=== PATIENT | female | born 1970 | race Two or more races ===

== ENCOUNTER 2023-12-16 09:00 | Inpatient (IN) | payer OTHER ==
[~2023-12-16] VITALS: Ht 160 cm; Wt 64.4 kg
[2023-12-16 10:12] LABS: HEMATOCRIT 44.6 % (36.0-45.00); HEMOGLOBIN 15.3 g/dL (12.0-15.00); MEAN CELL VOLUME 92.3 fL (80.00-100.00); MEAN CORPUSCULAR HEMOGLOBIN 31.7 pg (27.00-32.0); MEAN CORPUSCULAR HGB CONC 34.4 g/dl (32.0-36.0); PLATELET COUNT 164 K/uL (150-450); RED BLOOD COUNT 4.83 M/uL (4.00-6.00); RED CELL DISTRIBUTION WIDTH 13.2 % (11.5-14.5)
[2023-12-16] MEDS ORDERED: SYNTHROID75 MCG PO ×2 (10:12→10:13)
[2023-12-16 10:14] VITALS: BP 117/52
[2023-12-16 10:21] VITALS: BP 114/73
[2023-12-16 10:31] LABS: INR 1.02; PARTIAL THROMBOPLASTIN TIME 24.7 SECONDS (22.0-34.0); PROTHROMBIN TIME 11.1 SECONDS (9.0-11.5)
[2023-12-16 11:30] LABS: ALBUMIN 4.1 gm/dL (3.4-5.0); BILIRUBIN TOTAL 0.61 mg/dL (0.3-1.2); CALCIUM 10.8 mg/dL (8.5-10.1); CREATININE SERUM 0.58 mg/dL (0.55-1.02); GFR 108.33; GLOBULINA 2.9 G/DL (2.4-3.5); POTASSIUM 4.52 mEq/L (3.5-5.1)
[2023-12-16 12:46] LABS: RH POSITIVE
[2023-12-27] MEDS ORDERED: RINGERS SOLUTION,LACTATED 1,000 ML IV SCH (11:00)
[2023-12-27] MEDS ORDERED: MORPHINE SULFATE 4 MG/ML CARTRIDGE IV PRN (11:00)
[2023-12-27] MEDS ORDERED: CEFAZOLIN SODIUM 1,000 MG VIAL IV ONE (11:15)
[2023-12-27] MEDS ORDERED: IBUprofen 800 MG TABLET PO PRN (11:15)
[2023-12-27] MEDS ORDERED: KETOROLAC TROMETHAMINE 30 MG VIAL IV PRN (11:15)
[2023-12-27] MEDS ORDERED: ACETAMINOPHEN 325 MG TABLET PO PRN (11:15)
[2023-12-27] MEDS ORDERED: SUGAMMADEX SODIUM 200 MG/2 ML VIAL IV ONE (11:30)
[2023-12-27] MEDS ORDERED: MORPHINE SULFATE 4 MG/ML VIAL IV ONE ×2 (11:50→12:20)
[2023-12-27 13:47] VITALS: BP 117/52
[2023-12-27 16:00] VITALS: BP 125/68
[2023-12-27] MEDS ORDERED: ONDANSETRON HCL 2 MG/ML VIAL IV SCH (21:00)
[2023-12-28 01:08] VITALS: BP 117/74
[2023-12-28 07:05] LABS: HEMOGLOBIN 13.4 g/dL (12.0-15.00); MEAN CELL VOLUME 91.5 fL (80.00-100.00); MEAN CORPUSCULAR HEMOGLOBIN 31.5 pg (27.00-32.0); MEAN CORPUSCULAR HGB CONC 34.5 g/dl (32.0-36.0); PLATELET COUNT 158 K/uL (150-450); RED BLOOD COUNT 4.26 M/uL (4.00-6.00); RED CELL DISTRIBUTION WIDTH 12.8 % (11.5-14.5)
[2023-12-28 07:31] LABS: ALBUMIN 3.2 gm/dL (3.4-5.0); BILIRUBIN TOTAL 1.04 mg/dL (0.3-1.2); CALCIUM 9.7 mg/dL (8.5-10.1); CREATININE SERUM 0.47 mg/dL (0.55-1.02); GFR 138.09; GLOBULINA 2.3 G/DL (2.4-3.5); POTASSIUM 3.96 mEq/L (3.5-5.1); TOTAL PROTEIN 5.5 gm/dL (6.4-8.2)
[2023-12-28 08:28] VITALS: BP 101/60
[2023-12-28] MEDS ORDERED: SIMETHICONE 125 MG CAPSULE PO SCH (09:00)
[2023-12-28] MEDS ORDERED: IBU800 MG PO (15:58)
[2023-12-28] MEDS ORDERED: SURFAK240 M1 PO (15:59)
[2023-12-28] MEDS ORDERED: SIMETHICONE125 M1 PO (15:59)
[2023-12-28 16:00] VITALS: BP 111/70
[2023-12-28] MEDS ORDERED: HIBICLENS118 ML TOP (16:03)
== END 2023-12-28 17:04 | disposition home or self-care (01) | DRG 743 ==
LOC: O/R 12-27 08:15 → OB/GYN 12-27 08:15 → SURG 12-27 09:00 → OB/GYN 12-27 12:48
PROVIDERS: ADMIT Obstetrics & Gynecology; ATTEND Obstetrics & Gynecology
PROC: 0UT20ZZ Resection of Bilateral Ovaries, Open Approach (ICD-10-PCS; 2023-12-27)
PROC: 0UT70ZZ Resection of Bilateral Fallopian Tubes, Open Approach (ICD-10-PCS; principal; 2023-12-27 09:20)
DX: N83.11 Corpus luteum cyst of right ovary (principal); D27.1 Benign neoplasm of left ovary; Z20.822 Contact with and (suspected) exposure to COVID-19